=== PATIENT | male | born 1955 | race American Indian/Alaskan Native ===

== ENCOUNTER 2016-10-05 03:26 | Inpatient (IN) | payer BC ==
[2016-10-05 04:19] LABS: Basophils % (Auto) 0.2 % (0.0-1.8); Eosinophils % (Auto) 2.1 % (0.0-4.3); Hematocrit 38.9 % (35.5-45.6); Hemoglobin 12.9 gm/dl (11.8-15.2); Mean Corpuscular HGB Conc 33 % (32-34); Mean Corpuscular Hemoglobin 28 pg (28-32); Mean Corpuscular Volume 84 fl (84-94); Platelet Count 243 K/mm3 (140-440); Red Blood Count 4.65 M/mm3 (3.65-5.03); Red Cell Distribution Width 13.2 % (13.2-15.2); White Blood Count 7.1 K/mm3 (4.5-11.0)
[2016-10-05 04:34] LABS: Anion Gap 20 mmol/L; BUN/Creatinine Ratio 14.28; Blood Urea Nitrogen 10 mg/dL (9-20); Calcium 8.7 mg/dL (8.4-10.2); Carbon Dioxide 24 mmol/L (22-30); Chloride 99.6 mmol/L (98-107); Glucose 108 mg/dL (75-100); Potassium 4.1 mmol/L (3.6-5.0); Sodium 139 mmol/L (137-145)
--- NOTE | 2016-10-05 08:00 | Emergency Department Report ---
ED General Adult HPI - General Chief complaint: Dizziness Stated complaint: LIGHTHEADED Time Seen by Provider: 10/05/16 07:44 Source: patient, family, RN notes reviewed Mode of arrival: Ambulatory Limitations: No Limitations - History of Present Illness Initial comments: This is a 61-year-old male. He is previously unknown to me. The patient has a past medical history of stroke 2. He reports he is not compliant with his aspirin therapy. In the past, he has seen Dr. Damian of primary care, and Dr. Salmeron of neurology. The patient presents to the ER with complaint of lost balance, unsteady gait, nausea and ataxia. The symptoms started at 2:00 in the morning. They're painless. They are mostly resolved. There is no leg pain. There is no leg swelling. Patient does report a recent trip to [place], in an automobile, but reports frequent breaks for gas and bathroom. There is no chest pain, there is no shortness of breath. He further reports that his symptoms felt like he was intoxicated from alcohol, but he denies alcohol consumption. -: Gradual, hour(s) Consistency: constant Improves with: none Worsens with: none Associated Symptoms: syncope - Related Data Previous Rx's Medication Instructions Recorded Last Taken Type Acetaminophen [Acetaminophen TAB] 325 mg PO Q4H PRN #30 tablet 10/06/16 Unknown Rx Aspirin [Aspirin TAB] 325 mg PO QDAY #30 tablet 10/06/16 Unknown Rx Famotidine [Pepcid] 20 mg PO BID #30 tablet 10/06/16 Unknown Rx Simvastatin [Zocor TAB] 40 mg PO QHS #30 tablet 10/06/16 Unknown Rx Allergies Allergy/AdvReac Type Severity Reaction Status Date / Time No Known Allergies Allergy Verified 03/07/13 21:15 ED Review of Systems ROS: Stated complaint: LIGHTHEADED Other details as noted in HPI Constitutional: malaise. denies: fever Eyes: denies: eye discharge ENT: denies: epistaxis Respiratory: denies: cough Cardiovascular: denies: chest pain Gastrointestinal: denies: abdominal pain Genitourinary: denies: dysuria Musculoskeletal: denies: back pain Skin: denies: lesions Neurological: abnormal gait, vertigo Psychiatric: denies: anxiety ED Past Medical Hx - Past Medical History Previous Medical History?: Yes Hx Hypertension: No Hx CVA: Yes (2 X) Hx Congestive Heart Failure: No Hx Diabetes: No Hx Asthma: No Hx COPD: No Hx HIV: No Additional medical history: TIA - Surgical History Past Surgical History?: No - Social History Smoking Status: Never Smoker Substance Use Type: None - Medications Home Medications: Home Medications Medication Instructions Recorded Confirmed Last Taken Type Acetaminophen [Acetaminophen TAB] 325 mg PO Q4H PRN #30 tablet 10/06/16 Unknown Rx Aspirin [Aspirin TAB] 325 mg PO QDAY #30 tablet 10/06/16 Unknown Rx Famotidine [Pepcid] 20 mg PO BID #30 tablet 10/06/16 Unknown Rx Simvastatin [Zocor TAB] 40 mg PO QHS #30 tablet 10/06/16 Unknown Rx ED Physical Exam - General Limitations: No Limitations General appearance: alert, in no apparent distress - Head Head exam: Present: atraumatic, normocephalic - Eye Eye exam: Present: normal appearance, PERRL, EOMI, other (visual acuity intact to finger counting, color perception, reading at a close distance). Absent: nystagmus - ENT ENT exam: Present: normal exam, normal orophraynx, mucous membranes moist, TM's normal bilaterally, normal external ear exam - Neck Neck exam: Present: normal inspection, full ROM. Absent: tenderness, meningismus - Respiratory Respiratory exam: Present: normal lung sounds bilaterally. Absent: respiratory distress, wheezes, rales, rhonchi, stridor, chest wall tenderness, accessory muscle use, decreased breath sounds, prolonged expiratory - Cardiovascular Cardiovascular Exam: Present: regular rate, normal rhythm, normal heart sounds. Absent: bradycardia, tachycardia, irregular rhythm, systolic murmur, diastolic murmur, rubs, gallop - GI/Abdominal GI/Abdominal exam: Present: soft, normal bowel sounds. Absent: distended, tenderness, guarding, rebound, rigid, pulsatile mass - Rectal Rectal exam: Present: deferred - Extremities Exam Extremities exam: Present: normal inspection - Back Exam Back exam: Present: normal inspection, full ROM. Absent: tenderness, CVA tenderness (R), CVA tenderness (L), muscle spasm, paraspinal tenderness, vertebral tenderness - Neurological Exam Neurological exam: Present: alert, oriented X3, normal gait (negative pronator drift. Normal [id number]. Walks with a broad-based gait. Positive Romberg. Unable to perform tandem gait), other (Extraocular movements intact. Tongue midline. No facial droop. Facial sensation intact to light touch in the V1, V2 , V3 distribution bilaterally. 5 and 5 strength in 4 extremities.. Sensation is intact to light touch in 4 extremities.). Absent: motor sensory deficit - Psychiatric Psychiatric exam: Present: normal affect, normal mood - Skin Skin exam: Present: warm, dry, intact, normal color. Absent: rash ED Course Vital Signs 10/05/16 10/05/16 10/05/16 03:43 06:51 07:01 Temperature 98.3 F Pulse Rate 60 56 L 51 L Respiratory 18 19 18 Rate Blood Pressure 142/89 118/68 O2 Sat by Pulse 98 96 Oximetry 10/05/16 10/05/16 10/05/16 08:00 09:23 10:00 Temperature Pulse Rate 58 L 53 L Respiratory 18 17 Rate Blood Pressure 135/84 135/84 126/68 O2 Sat by Pulse 97 98 Oximetry 10/05/16 11:01 Temperature Pulse Rate 57 L Respiratory 19 Rate Blood Pressure 126/68 O2 Sat by Pulse 97 Oximetry - Reevaluation(s) Reevaluation #1: 10/05/16 08:32 differential diagnosis: Stroke, transient ischemic attack, orthostasis, vagal event, structural cardiac disease Assessment and plan: 61-year-old male who is low risk by well's criteria with a complaint of unsteady gait. No TPA candidate as he presented more than 4.5 hours after symptoms. Neurologic exam is nonlateralizing, the patient does have an abnormal gait. Noncontrast CT scan of the brain is pending. We will attempt to contact his private neurologist. Patient will require admission for near syncope versus TIA/stroke. Reevaluation #2: 10/05/16 09:17 CT scan of the brain demonstrates chronic right-sided cerebellar infarct. Case is discussed with the patient's private neurologist, Dr. Salmeron, and he agrees to follow in consultation. Case is presented to the Hospital physician, Dr. Quintana, and he accepts the patient to his service. ED Medical Decision Making - Lab Data Result diagrams: 10/05/16 04:00 10/05/16 04:00 Vital Signs 10/05/16 10/05/16 10/05/16 03:43 06:51 07:01 Temperature 98.3 F Pulse Rate 60 56 L 51 L Respiratory 18 19 18 Rate Blood Pressure 142/89 118/68 O2 Sat by Pulse 98 96 Oximetry Lab Results 10/05/16 10/05/16 Range/Units 04:00 04:00 WBC 7.1 (4.5-11.0) K/mm3 RBC 4.65 (3.65-5.03) M/mm3 Hgb 12.9 (11.8-15.2) gm/dl Hct 38.9 (35.5-45.6) % MCV 84 (84-94) fl MCH 28 (28-32) pg MCHC 33 (32-34) % RDW 13.2 (13.2-15.2) % Plt Count 243 (140-440) K/mm3 Lymph % (Auto) 34.6 (13.4-35.0) % Alcorn % (Auto) 5.8 (0.0-7.3) % Eos % (Auto) 2.1 (0.0-4.3) % Baso % (Auto) 0.2 (0.0-1.8) % Lymph # 2.4 (1.2-5.4) K/mm3 Alcorn # 0.4 (0.0-0.8) K/mm3 Eos # 0.2 (0.0-0.4) K/mm3 Baso # 0.0 (0.0-0.1) K/mm3 Seg Neutrophils % 57.3 (40.0-70.0) % Seg Neutrophils # 4.0 (1.8-7.7) K/mm3 Sodium 139 (137-145) mmol/L Potassium 4.1 (3.6-5.0) mmol/L Chloride 99.6 (98-107) mmol/L Carbon Dioxide 24 (22-30) mmol/L Anion Gap 20 mmol/L BUN 10 (9-20) mg/dL Creatinine 0.7 L (0.8-1.5) mg/dL Estimated GFR > 60 ml/min BUN/Creatinine Ratio 14.28 % Glucose 108 H (75-100) mg/dL Calcium 8.7 (8.4-10.2) mg/dL - EKG Data -: EKG Interpreted by Me - EKG Data 10/05/16 08:33 Sinus bradycardia, 56 bpm, normal intervals, normal axis, not morphologically consistent with STEMI - Radiology Data Radiology results: pending, report reviewed Critical care attestation.: If time is entered above; I have spent that time in minutes in the direct care of this critically ill patient, excluding procedure time. ED Disposition Clinical Impression: Ataxia, CVA (cerebral infarction) Disposition: OP ADMIT IP TO THIS HOSP Is pt being admited?: Yes Does the pt Need Aspirin: Yes Condition: Stable
--- NOTE | 2016-10-05 09:01 | Cat Scan Report ---
CT HEAD WITHOUT CONTRAST: HISTORY: TIA, ataxia. TECHNIQUE: Sequential CT images in 2.5 mm intervals. FINDINGS: 1.4 x 2.0 cm chronic focal infarct in the inferior, medial right cerebellar hemisphere is unchanged since 08/24/15. The remainder of the brain parenchyma is within normal limits. The pierson-white interface is well defined. No evidence for hemorrhage, mass, large area of acute ischemia. No extra axial fluid collection. Ventricular size is within normal limits. The mastoid air cells and visualized portions of the sinuses are normal. IMPRESSION: Chronic right cerebellar infarct. No acute intracranial process appreciated.
[2016-10-05] MEDS ORDERED: BABY ASPIRIN PO ONE (09:18)
[2016-10-05 09:49] LABS: Bilirubin,Urine NEG (Negative); Blood,Urine NEG (Negative); Ketones,Urine NEG (Negative); Leukocyte Esterase,Urine NEG (Negative); Mucus,Urine 1+ /HPF; Nitrite,Urine NEG (Negative); Protein,Urine <15 mg/dL mg/dL (Negative); Urobilinogen,Urine < 2.0 mg/dL (<2.0)
--- NOTE | 2016-10-05 09:50 | Admit Criteria Form ---
Admission Criteria Documentation: NEUROLOGY GRG Clinical Indications for Admission to Inpatient Care (Place ' X' for any and all applicable criteria): Hospital admission is needed for appropriate care of the patient because of 1 or more of the following: [ ]I. Encephalitis [ ]II. Severe [employer] infections indicated by 1 or more of the following(1)(2)(3) : [ ]a) Intracranial abscess [ ]b) Spinal abscess or myelitis [ ]c) Tuberculous or other nonbacterial, nonviral [employer] infection(8) [ ]III. Vasculitis and 1 or more of the following(14)(15): []a) Altered mental status that is severe or persistent or other acute neurologic change []b) Psychosis []c) Seizure [ ]IV. Status epilepticus or repetitive seizures not controlled with emergent treatment [A] (7)(8) [ ]V. Altered mental status that is severe or persistent [ ]. Transient alteration in consciousness with high-risk etiology; examples include (12)(13): [ ]a) Cardiovascular source [ ]b) Cataplexy [ ]VII. Cerebral aneurysm requiring ANY ONE of the following(14): [ ]a) IV antihypertensives or vasoactive agents [ ]b) Sedation and analgesia for suspected leak [ ]c) Need for external ventricular drainage and cerebral perfusion pressure monitoring [ ]d) Emergent evaluation to determine need for surgical clipping or endovascular coiling by interventional radiology. If surgery is required ( Also use Craniotomy, Supratentorial, for Surgery of Bleeding Intracranial Aneurysm (for bleeding aneurysm) or Craniotomy, Supratentorial (for nonbleeding aneurysm) as appropriate. [ ]VIII. New-onset severe neurologic symptom requiring inpatient care indicated by ANY ONE of the following: [ ]a) Aphasia(15) [ ]b) Weakness (grade 3 or less) [ ]c) Paralysis (eg, hemiplegia) [ ]d) Spasticity(16) [ ]e) Dystonia [ ]e) Ataxia(17) [ ]f) Amnesia(18) [ ]g) Involuntary movements(19) [ ]h) Vertigo [ ] Visual loss [ ]i) Other severe neurologic finding (eg, papilledema, mass effect on imaging, myoclonus not treatable at alternative level of care (eg, observation care) [ ]IX. Guillain-[place] syndrome(20) [ ]X. Myasthenia gravis crisis or inpatient monitoring need as indicated by 1 or more of the following(21): [ ]a) Intensive treatment (eg, course of plasmapheresis) with inadequate outpatient situation to monitor patients status [ ]b) Inadequate airway protection [ ]c) Respiratory insufficiency requiring intubation or inpatient. monitoring [ ]d) Progressive dysphagia with failure to thrive [ ]XI. Multiple sclerosis or other acute demyelinating disease requiring inpatient care as indicated by 1 or more of the following (22)(23): [ ]a) Acute severe deterioration requiring inpatient treatment (eg, IV steroids, plasmapheresis, close observation) [ ]b) Acute complication requiring inpatient care (eg, sepsis, severe decubitus, aspiration) [ ]XII.Parkinson disease requiring inpatient care (Also use Optimal Recovery Care Criteria or General Recovery Criteria as appropriate) indicated by 1 or more of the following(25): [ ]a) Infection (eg, aspiration pneumonia) not treatable at alternative level of care [ ]b Dehydration that is severe or persistent [ ]c) Life-threatening agitation or psychotic behavior not treatable on emergency, observation care, or alternative level (eg, residential) basis [ ]d) Severe medication withdrawal effects (eg, freezing, neuroleptic malignant syndrome) not responsive to emergency and observation care treatment ( as appropriate) [ ]e) Other severe manifestation not treatable at alternative level of care [ ]XII. Amyotrophic lateral sclerosis with inpatient care needs as indicated by ANY ONE of the following(26): [ ]a) Acute complications (eg, aspiration pneumonia, sepsis ) requiring inpatient care ( see other optimal Recovery Guideline as appropriate) [ ]b) Dehydration that is severe persistent AND artificial support desired [ ]c) Inadequate airway protection AND artificial support desired [ ]d) Severe ventilatory insufficiency AND artificial support desired [ ]XIII. Myasthenia gravis crisis or inpatient monitoring need as indicated by 1 or more of the following(21): [] a) Inadequate airway protection []b) Respiratory insufficiency requiring intubation or inpatient monitoring []c) Progressive dysphagia with failure to thrive []d) Intensive treatment (e.g., course of plasmapheresis) with inadequate outpatient situation to monitor patients status [ ]XIV. Multiple sclerosis or other acute demyelinating disease requiring inpatient care indicated by 1 or more of the following[C](36)(43)(44)(45)(46): []a) Acute severe deterioration requiring inpatient treatment (eg, IV steroids, plasmapheresis, close observation) []b) Acute complication requiring inpatient care (eg, sepsis, severe decubitus, aspiration) [ ]XV. Intracranial hypertension (e.g., pseudotumor cerebri) requiring inpatient care (e.g., acute visual loss, inadequate oral intake) (47)(48)(49) [ ]XVI. Parkinson disease requiring inpatient care (Also use Optimal Recovery Care Criteria or General Recovery Criteria as appropriate) indicated by 1 or more of the following(25): [] a) Infection (e.g., aspiration pneumonia) not treatable at alternative level of care []b) Volume depletion not responsive to emergency and observation care treatment (as appropriate) []c) Life-threatening agitation or psychotic behavior not treatable on emergency, observation care, or alternative level (e.g., residential) basis []d) Severe medication withdrawal effects (e.g., freezing, neuroleptic malignant syndrome) not responsive to emergency and observation care treatment (as appropriate) []e) Other severe manifestation not treatable at alternative level of care [ ]XVII. Amyotrophic lateral sclerosis with inpatient care needs as indicated by1 or more of the following(42): []a) Acute complications (eg, aspiration pneumonia, sepsis) requiring inpatient care (see other Optimal Recovery Guideline or General Recovery Guideline as appropriate) []b) Dehydration that is severe or persistent AND artificial support desired []c) Inadequate airway protection AND artificial support desired []d) Severe ventilatory insufficiency AND artificial support desired [ ]XVIII. Severe myopathy, neuropathy, or other neuromuscular disease indicated by 1 or more of the following(42)(52)(53)(54): []a ) New-onset severe diffuse weakness (eg, strength 3/5 or less) []b) Severe dysphagia []c) Dyspnea at rest or with minimal exertion (new) []d) Inadequate airway protection []e) Inadequate ventilation indicated by 1 or more of the following : i) Partial pressure of carbon dioxide greater than 44 mm Hg ( 5.9 kPa) (new) ii) Reduced peak expiratory flow rate (new) iii) Vital capacity less than 50% of predicted (less than 15 mL/kg) iv) Peak inspiratory force less negative than -30 cm H2O (- 2942 Pa) [ ]XVII.Complications of congenital or degenerative disease (eg, infection, seizures, dehydration, injury) not responsive to emergency and observation care treatment (as appropriate ) [C](16)(29)(30) [ ]XVIII.Suspected or confirmed nerve or muscle toxic injury, including ANY ONE of the following: [ ]a) Rhabdomyolysis(31) i) Acute renal failure ii) Dehydration that is severe or persistent iii) Altered mental status that is severe or persistent iv) Electrolyte abnormality that remains after emergency or observation level care ( as appropriate) [ ]b) Botulism(32) [ ]c) Other severe toxin-induced sign or symptom [ ]XIX. Neurologic trauma requiring inpatient treatment (medical) indicated by ANY ONE of the following(33)(34): [ ]a) Vital signs or neurologic signs more frequently than every 4 hours [ ]b) Hyperosmolar therapy [ ]c) Respiratory monitoring [ ]d) Intracranial pressure monitoring and treatment [ ]e) Stabilization and immobilization device placement (eg, braces, body jacket) [ ]f) Intubation & mechanical ventilation for airway protection or therapeutic hyperventilation [ ]g) Other treatment or monitoring needed that requires inpatient level of care [ ]XX.Complications of neurologic devices (eg, ventricular shunt, neurostimulator) requiring 1 or more of the following(35)(36): [ ]a) IV antibiotics with monitoring while awaiting culture results [ ]b) Monitoring for hydrocephalus [X ]XXI. Neurology condition symptom, or finding for which emergency and observation care have failed or are not considered appropriate. See General Criteria: Observation Care ISC, General Admission Criteria GRG, or Pediatric General Admission Criteria GRG guideline as appropriate. The original [facility] [employer] content created by [facility] has been revised. The portions of the content which have been revised are identified through the use of italic text or in bold, and [facility] has neither reviewed nor approved the modified material. All other unmodified content is copyright [facility] Please see references footnoted in the original [facility] edition 2016 Admission Criteria Met: Yes
[2016-10-05] MEDS ORDERED: BABY ASPIRIN ONE (11:10)
[2016-10-05] MEDS ORDERED: SODIUM CHLORIDE FLUSH SYRINGE 10 ML IV PRN (12:16)
[2016-10-05] MEDS ORDERED: TYLENOL PO PRN (12:16)
[2016-10-05] MEDS ORDERED: DULCOLAX PR PRN (12:16)
[2016-10-05] MEDS ORDERED: ZOFRAN IV PRN (12:16)
[2016-10-05] MEDS ORDERED: SENOKOT PO PRN (12:16)
--- NOTE | 2016-10-05 12:32 | History and Physical Report ---
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 He denies any associated symptoms such as headaches, loss of vision. There is no aggravating or relieving factors to the dizziness. Symptoms are similar to prior stroke. Patient admits that he doesn't take his aspirin regularly. His neurologist Dr. Titus. CT head without contrast read as chronic right cerebellar infarct, no acute intracranial process appreciated. Past medical history: CVA Past surgical history: He denies Social History: He denies alcohol abuse, tobacco use or illegal drug, at bedside Full Code ROS: Constitutional: no weight loss, no weight gain, no chills, no sweats, no fatigue, no weakness, no poor appetite Ears, nose, mouth and throat: no deferred, no ear pain, no decreased hearing, no sinus pressure, no bleeding gums, no dental pain, no mouth pain, no hoarseness, no sore throat, no swelling in mouth, no post-nasal drip, no headache, no vertigo, no pain front of neck, no neck lump Cardiovascular: chest pain, lightheadedness, decreased exercise tolerance, no orthopnea, no palpitations, no rapid/irregular heart beat, no edema, no syncope , no shortness of breath, no dyspnea on exertion, no paroxysmal nocturnal dyspnea, no claudication, no phlebitis, no high blood pressure, no leg edema Respiratory: no cough with sputum, no excessive sputum, no hemoptysis, no pleurisy, no pain, no pain on inspiration, no respiratory infections, no other Gastrointestinal: no nausea, no diarrhea, no constipation, no hematemesis, no hematochezia, no loss of appetite, no early satiety, no indigestion, no dyspepsia/bloating Genitourinary Male: no flank pain, no discharge, no urinary hesitancy, no nocturia Rectal: no incontinence, no bleeding, no itching, no discharge Musculoskeletal: no neck stiffness, no shooting arm pain, no arm numbness/ tingling, no shooting leg pain, no leg numbness/tingling, no atrophy, no limitation of motion, no fractures, no loss of height, no prior amputations, no arthritis Integumentary: no depigmentation, no dryness, no unusual bruising Neurological: no weakness, no tingling, no syncope, no vertigo, no migraines, no aphasia, no change in mentation, no changes in smell/taste, no balance difficulties, no double vision, no burning pain, no paralysis Psychiatric: hypersomnia, change in libido, irritability, no anxiety, no memory loss, no sleep disturbances, no change in appetite, no disorientation, no hallucinations, no paranoia, no hopelessness, no anxiety attacks, no confusion Endocrine: no cold intolerance, no polyphagia, no polydipsia, no polyuria, no nocturia, no proptosis, no palpatations, no high blood sugars, no low blood sugars, no fatigue Hematologic/Lymphatic: no easy bruising, no lymphedema Allergic/Immunologic: no urticaria, no allergic rhinitis, no anaphylaxis Medications and Allergies Allergies Allergy/AdvReac Type Severity Reaction Status Date / Time No Known Allergies Allergy Verified 03/07/13 21:15 Home Medications Medication Instructions Recorded Confirmed Last Taken Type No Known Home Medications [No 08/24/15 10/05/16 Unknown History Reported Home Medications] Active Meds: Active Medications Acetaminophen (Tylenol) 650 mg PO Q4H PRN PRN Reason: Pain, Mild (1-3) Aspirin (Aspirin) 325 mg PO QDAY [facility] Bisacodyl (Dulcolax) 10 mg HI QDAY PRN PRN Reason: Constipation Famotidine (Pepcid) 20 mg PO BID [facility] Ondansetron HCl (Zofran) 4 mg IV Q8H PRN PRN Reason: Nausea And Vomiting Senna (Senokot) 8.6 mg PO Q12H PRN PRN Reason: Laxative Effect Simvastatin (Zocor) 20 mg PO QHS [facility] Sodium Chloride (Sodium Chloride Flush Syringe 10 Ml) 10 ml IV PRN PRN PRN Reason: LINE FLUSH Exam - Physical Exam Narrative exam: GEN: WDWN, NAD, AWAKE, ALERT, ORIENTATED x 3 HEENT: NCAT, PERRL, EOMI, OP CLEAR NECK: SUPPLE, NO THYROMEGALY, NO JVD, NO LAD CVS: RRR, NORMAL S1S2 LUNGS/CHEST: CTA B, NORMAL CHEST EXPANSION B, GOOD AIR ENTRY B ABD: SOFT, NTND, GBS, NO REBOUND OR GUARDING EXT/SKIN: NO SIGNIFICANT EDEMA OR RASH MSK: FROM X 4 EXTREMITIES NEURO: CN 2-12 GROSSLY INTACT, no drift, mildly abnormal pin-pointing, ataxic gait PSY: CALM - Constitutional Vitals: Temp Pulse Resp BP Pulse Ox 98.3 F 57 L 19 126/68 97 10/05/16 03:43 10/05/16 11:01 10/05/16 11:01 10/05/16 11:01 10/05/16 11:01 Results - Labs CBC & Chem 7: 10/05/16 04:00 10/05/16 04:00 Assessment and Plan 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 He denies any associated symptoms such as headaches, loss of vision. There is no aggravating or relieving factors to the dizziness. Symptoms are similar to prior stroke. Patient admits that he doesn't take his aspirin regularly. His neurologist Dr. Titus. CT head without contrast read as chronic right cerebellar infarct, no acute intracranial process appreciated. -Suspect acute CVA with ischemic infarct: Ordered stroke protocol, treat with ASA/statin, ordered MRI/MRA brain, echo, lipid panel and carotid duplex -History of CVA, noncompliance with aspirin therapy: Counseling done -Mild Bradycardia: ECHO, telemetry -DVT prophylaxis: sq lovenox
[2016-10-05] MEDS ORDERED: ATIVAN IV PRN (18:14)
[2016-10-05] MEDS: PEPCID PO SCH (21:32)
--- NOTE | 2016-10-05 21:39 | Consultation ---
History of Present Illness Consult date: 10/05/16 Requesting physician: GRICELDA HACKETT Reason for Consult: CVA Chief complaint: Ataxia History of present illness: 61 yo man wiht PMH of right cerebellar CVA in 2013, presented with ataxia on around 1:30am. 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 His balance was off and had to walk carefully. He denied headache, vertigo, vision loss, double vision, numbness, weakness, dysarthria. He was brought to ED by his family member at 3: 43 am. He had HCT which showed old right cerebellar inaction. His symptoms improved and his exam at ER only showed wide-based gait and unsteady tandem walking. T-PA was not given. He was admitted for further workup. He gait improved significantly when I saw him this evening. His MRI was not done due to claustrophobia. He was last seen in my office was one year ago. He stated he did not take his ASA regularly. Past History Past Medical History: stroke (right cerebellar infarction in 2013) Past Surgical History: No surgical history Social history: denies: smoking, alcohol abuse, IV drug use Family history: no significant family history Medications and Allergies Allergies Allergy/AdvReac Type Severity Reaction Status Date / Time No Known Allergies Allergy Verified 03/07/13 21:15 Home Medications Medication Instructions Recorded Confirmed Last Taken Type No Known Home Medications [No 08/24/15 10/05/16 Unknown History Reported Home Medications] Active Meds: Active Medications Acetaminophen (Tylenol) 650 mg PO Q4H PRN PRN Reason: Pain, Mild (1-3) Aspirin (Aspirin) 325 mg PO QDAY [facility] Bisacodyl (Dulcolax) 10 mg [place] QDAY PRN PRN Reason: Constipation Enoxaparin Sodium (Lovenox) 40 mg SUB-Q QDAY@2200 [facility] Last Admin: 10/05/16 21:32 Dose: 40 mg Famotidine (Pepcid) 20 mg PO BID [facility] Last Admin: 10/05/16 21:32 Dose: 20 mg Lorazepam (Ativan) 1 mg IV ONCE PRN PRN Reason: Anxiety Ondansetron HCl (Zofran) 4 mg IV Q8H PRN PRN Reason: Nausea And Vomiting Senna (Senokot) 8.6 mg PO Q12H PRN PRN Reason: Laxative Effect Simvastatin (Zocor) 20 mg PO QHS JOAN Last Admin: 10/05/16 21:32 Dose: 20 mg Sodium Chloride (Sodium Chloride Flush Syringe 10 Ml) 10 ml IV PRN PRN PRN Reason: LINE FLUSH Review of Systems All systems: negative (mild dizziness.) Physical Examination - Vital Signs Vital Signs: Vital Signs Temp Pulse Resp BP Pulse Ox 98.3 F 60 18 142/89 98 10/05/16 03:43 10/05/16 03:43 10/05/16 03:43 10/05/16 03:43 10/05/16 03:43 - Physical Exam Narrative exam: General appearance: comfortable EENT: Present: ATNC, PERRL, mucous membranes moist Respiratory: Present: lungs clear Cardiovascular: Present: regular rate, normal S1, normal S2, no murmurs. Absent : gallops, rubs Extremities: Present: no peripheral edema bilatateraly Gastrointestinal: Present: normoactive bowel sounds, non-distended Integumentary: Present: normal Neurology exam: Mental status: AOX3, fluent speech, following commands. Normal comprehension Cranial nerves: PERRLA, EOMIs, VFF, no papiledemia , no facial asymmetry. normal facial sensation to light touch and pinprick. normal palate elevation, tongue in midline,normal shoulder shrug. Sensation: intact to LT, pp, vibration and position Motor: normal bulk, tone, no abnormal movement. motor 5/5 in RUE/LUE/RLE/LLE DTR: 2+bilaterally Coordination: finger to nose and heel to sheen with dysmetria. no drift. Gait: able to toe-walking, heel-walking and tandem-walking. No ataxia Romberg: negative Results - Laboratory Findings CBC and BMP: 10/05/16 04:00 10/05/16 04:00 - Diagnostic Findings EKG: report reviewed (sinus bradycardia, HR 56) Additional findings: HCT: chronic right cerebellar infarction, no mass, bleeding or acute infarction Crotid doppler: less than 50% stenosis bilaterally , bilateral antegrade flow. Assessment and Plan Given his ataxia improved in less than 24 hours and no acute infarct on HCT, he most likely has TIA,small cerebellar infarction is also possible. 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
[2016-10-05] MEDS ORDERED: LOVENOX SUB-Q SCH (22:00)
[2016-10-05] MEDS ORDERED: ZOCOR PO SCH (22:00)
[2016-10-06] MEDS ORDERED: ASPIRIN PO SCH (10:00)
--- NOTE | 2016-10-06 10:47 | Magnetic Resonance Report ---
MRI OF THE BRAIN WITHOUT CONTRAST: HISTORY: CVA PROCEDURE: Multiplanar, multisequence MR imaging of the brain without IV contrast was performed. FINDINGS: Compared to the CT head without contrast dated 10/05/16 and MR brain dated 05/19/14. Chronic infarct in the knee inferomedial right cerebellar hemisphere is again noted measuring 2.2 x 1.4 cm. Otherwise, the remaining brain parenchyma demonstrates normal signal on all sequences. The pierson-white interface is well-defined. No evidence for diffusion restriction, hemorrhage, mass or extra-axial fluid collection. The midline structures are central. The basal cisterns are patent. Normal ventricular size. The orbital cavities and sella turcica demonstrate no abnormality. The visualized paranasal sinuses and mastoid air cells are well aerated. IMPRESSION: No acute intracranial process. Chronic right cerebellar infarct.
--- NOTE | 2016-10-06 10:50 | Magnetic Resonance Report ---
MRA HEAD WITHOUT CONTRAST HISTORY: CVA, stroke. [id number] imaging with MIP reformations of the [place] is submitted. The arteries appear widely patent and free of hemodynamically significant stenosis or aneurysm dilatation. Both vertebral arteries are identified appearing patent as well. IMPRESSION: Unremarkable MRA head.
--- NOTE | 2016-10-06 13:17 | Progress Note ---
Assessment and Plan Given his ataxia improved in less than 24 hours and no acute infarct on HCT and brain MRI, he most likely has TIA. 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 Brain MRA- unremarkable Follow up TTE Continue ASA 325mg daily Continue Zocor to 40mg daily Stroke education DVT prophylaxis Patent can be discharged home and needs to follow up with me in 2 weeks(call for appointment Subjective Date of service: 10/06/16 Interval history: Patient was seen and examined at bedside.Brain MRI /MRA were done. He is doing well and no new complaints. Objective - Vital Sign Vital Signs - 12hr 10/06/16 08:00 Temperature 97.6 F Pulse Rate 60 Respiratory 22 Rate Blood Pressure 136/78 O2 Sat by Pulse 97 Oximetry - Laboratory Findings CBC and BMP: 10/05/16 04:00 10/05/16 04:00 Abnormal Lab Findings: Abnormal Labs 10/06/16 04:10 Triglycerides 279 H Cholesterol 201 H HDL Cholesterol 36 L
[2016-10-06] MEDS: PEPCID PO SCH (13:21)
--- NOTE | 2016-10-06 15:19 | Discharge Summary ---
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 He denies any associated symptoms such as headaches, loss of vision. There is no aggravating or relieving factors to the dizziness. Symptoms are similar to prior stroke. Patient admits that he doesn't take his aspirin regularly. His neurologist Dr. Titus. CT head without contrast read as chronic right cerebellar infarct, no acute intracranial process appreciated. -Suspect acute CVA with ischemic infarct, rule out, final diagnosis of TIA -History of CVA, noncompliance with aspirin therapy: Counseling done -Mild Bradycardia: ECHO, telemetry -DVT prophylaxis: sq lovenox ECHO pending Disposition: DC-01 TO HOME OR SELFCARE Time spent for discharge: 35 minutes Core Measure Documentation - Palliative Care Palliative Care/ Comfort Measures: Not Applicable - Core Measures Any of the following diagnoses?: none - VTE Discharge Requirements Deep Vein Thrombosis/Pulmonary Embolism Present on Admission: No Has pt received <5 days of overlap therapy or INR<2.0: No Anticoagulant overlap therapy prescribed at discharge: No Contraindication No Overlap Therapy order at DC: Not Indicated - Stroke Discharge Requirements Statin for LDL = or >70 mg/dl on DC: Yes Anticoag for atrial fib/atrial flutter: Not Applicable Reason for no anticoag for AF/F on DC: Not Indicated Antithrombotic for ischemic stroke: Yes Exam - Physical Exam Narrative exam: GEN: WDWN, NAD, AWAKE, ALERT, ORIENTATED x 3 HEENT: NCAT, PERRL, EOMI, OP CLEAR NECK: SUPPLE, NO THYROMEGALY, NO JVD, NO LAD CVS: RRR, NORMAL S1S2 LUNGS/CHEST: CTA B, NORMAL CHEST EXPANSION B, GOOD AIR ENTRY B ABD: SOFT, NTND, GBS, NO REBOUND OR GUARDING EXT/SKIN: NO SIGNIFICANT EDEMA OR RASH MSK: FROM X 4 EXTREMITIES NEURO: CN 2-12 GROSSLY INTACT, no drift, mildly abnormal pin-pointing, ataxic gait PSY: CALM - Constitutional Vitals: Temp Pulse Resp BP Pulse Ox 97.6 F 60 22 136/78 97 10/06/16 08:00 10/06/16 08:00 10/06/16 08:00 10/06/16 08:00 10/06/16 08:00 Plan Activity: no driving until cleared by PCP Follow up with: PRIMARY MD KAYLI [Primary Care Provider] - 3-5 Days JESSICA SUNSHINE MD [Staff Physician] - 7 Days Prescriptions: Simvastatin [Zocor TAB] 40 mg PO QHS #30 tablet Aspirin [Aspirin TAB] 325 mg PO QDAY #30 tablet
[2016-10-06 16:13] VITALS: BP 131/60
[2016-10-06] MEDS ORDERED: ZOCOR PO SCH (22:00)
--- NOTE | 2016-10-12 09:24 | Vascular Lab Report ---
CAROTID DUPLEX STUDY: RIGHT PSVEDV CCA PROX:[id number] CCA DIST:[id number] ICA PROX:4410 ICA MID:7824 ICA DIST:5723 ECA: 49 VERT: 42 15 LEFT PSVEDV CCA PROX:8417 CCA DIST:6822 ICA PROX:9825 ICA MID:6426 ICA DIST:6630 ECA: 69 VERT: 44 10 REASON FOR EXAM: Stroke. COMMENTS ON THE RIGHT: Doppler frequency analysis is consistent with 16 to 49 percent diameter reduction of the internal carotid artery. Minimal amount of plaque is seen. The common carotid artery is patent. The external carotid artery is patent. The vertebral artery has antegrade flow. COMMENTS ON THE LEFT: Doppler frequency analysis is consistent with 16 to 49 percent diameter reduction of the internal carotid artery. Minimal amount of plaque is seen. The common carotid artery is patent. The external carotid artery is patent. The vertebral artery has antegrade flow. IMPRESSION: Less than 50% diameter reduction in the internal carotid arteries bilaterally. Consider repeat carotid artery duplex in 12 months.
== END 2016-10-06 18:00 | disposition home or self-care (01) | DRG 69 ==
LOC: ED 03:26 → 3A 09:18
PROVIDERS: ADMIT Internal Medicine; ATTEND Internal Medicine
DX: G45.0 Vertebro-basilar artery syndrome (principal); R27.0 Ataxia, unspecified; R00.1 Bradycardia, unspecified; Z86.73 Personal history of transient ischemic attack (TIA), and cerebral infarction without residual deficits; Z79.82 Long term (current) use of aspirin; Z91.14 Patient's other noncompliance with medication regimen
CPT/HCPCS: 36415; 70450; 70544; 70551; 80048; 80061; 81001; 85025; 93005; 93010; 93306; 93880; J1650; J2060